=== PATIENT | male | born 1930 | race Caucasian/White ===

== ENCOUNTER 2016-11-06 14:44 | Inpatient (IN) | payer OTHER ==
--- NOTE | ~2016-11-06 | EKG ---
PATIENT: SHAHAB MEDEIROS UNIT #: [id number] Ventricular Rate: 78 BPM Atrial Rate: 78 BPM P-R Interval: 190 ms QRS Duration: 118 ms Q-T Interval: 392 ms QTC Calculation(Bezet): 446 ms P [place]: 42 degrees Calculated R [place]: 92 degrees Calculated T [place]: -39 degrees Diagnosis Line: Sinus rhythm with Fusion complexes Diagnosis Line: Rightward axis Diagnosis Line: Incomplete left bundle branch block Diagnosis Line: T wave abnormality, consider inferior ischemia Diagnosis Line: Abnormal ECG Diagnosis Line: When compared with ECG of 06-NOV-2016 13:33, Diagnosis Line: Premature ventricular complexes are no longer Diagnosis Line: Present Diagnosis Line: Incomplete left bundle branch block has replaced Diagnosis Line: Non-specific intra-ventricular conduction delay Diagnosis Line: Confirmed by NO PYLE MD ([id number]) on 11/10/2016 Diagnosis Line: 10:59:02 PM INTERPRETING MD: EDENILSON LALA
--- NOTE | ~2016-11-06 | ST ---
Unit #: [id number] #: [id number] Patient: SHAHAB MEDEIROS [id number] [address] [address] [id number] I MR#: [id number] NAME: SHAHAB MEDEIROS : 1930 SEX: M STUDY DATE/TIME: 11/07/2016 UNIT: [facility] ROOM: 572 STUDY DESCRIPTION: Stress Test Attending Physician: Smith Arce M.D. Primary Care Physician: Brandon Tejada M.D. CARDIOLOGY REPORT EXAM Lexiscan Cardiolite Stress Test REASON FOR EXAMINATION Chest pain. DESCRIPTION Baseline EKG was sinus rhythm with a rate of 64 beats/minute with a right bundle branch block. A total of 0.4 mg of Lexiscan was injected per protocol followed by Cardiolite. The patient's symptoms were nausea. His heart rate did drop to 38. The patient had to be laid back and he was given 250 mL of normal saline. Once we were able to obtain a blood pressure, his blood pressure was 95/68. The test was stopped due to protocol completion. There were no ST-T wave changes. The patient did have nausea with vasovagal resolved after fluids. No arrhythmias. Please correlate with Cardiolite imaging. Dictated by... Kimberly Arce A.P.R.N. for Solo Subramanian M.D. AM/jerry TD: 11/07/2016 12:31 JOB #: [id number] CARDIOLOGY REPORT Page 1 of 1 X Kimberly Arce APRN CARDIOLOGY REPORT
--- NOTE | ~2016-11-06 | CO ---
Unit #: [id number] #: [id number] Patient: SHAHAB MEDEIROS [id number] [place] [id number] [facility]. [place], [place] [address] [id number] I MR#: [id number] NAME: SHAHAB MEDEIROS ROOM: 572 Age: 85 Sex: M Admission Date: 11/06/2016 : 1930 Attending Physician: Smith Arce M.D. Primary Care Physician: Brandon Tejada M.D. Consultation Date: 11/07/2016 CONSULTATION REPORT REASON FOR CONSULTATION Chest pain and near syncope. REQUESTING PHYSICIAN Dr. Calzada HISTORY OF PRESENT ILLNESS The patient is an 85-year-old male with a history of coronary artery disease and valvular heart disease who had CABG x4 and mitral valve repair in January 2004. The patient states that this was performed following a myocardial infarction. The patient follows with Dr. Beau Betancur but has not seen him since Dr. Betancur left [facility]. The patient states that yesterday he had dinner and then around 2:00 went to use the restroom. He went to have a bowel movement. The patient states that he then felt diaphoretic and lightheaded. He denied problems with chest pain at the time. He then got up and felt as though he would nearly pass out. He then came into the emergency department for further evaluation. The patient also states that for the previous two to three days he has just not felt well. He has no real specific complaints. The patient also reports that since he has been in the hospital he has had some left sided chest discomfort he describes as a tightness. He says that this generally lasts a few seconds in duration. It is not pleuritic but can sometimes be exacerbated by lying on his left side. He has also experienced a few of these this morning. He has noticed some increase in dyspnea on exertion recently. He does, however, walk whenever the weather is good. He states that he sometimes walk to the park which is approximately a three mile walk and (1) walks around his neighborhood. He denies any problems with exertional chest pain and also denies problems with shortness of breath with this activity. The patient says that he did receive some nitroglycerin in the emergency department which helped with his chest discomfort. PAST CARDIAC TESTING HISTORY He had a left heart catheterization 07/04/[address] Beau Betancur for angina. At that time, it showed the left distal main had a 30% stenosis, the LAD had a proximal 100% stenosis, the left circumflex had an obtuse marginal one with a proximal 30% stenosis. The obtuse marginal two had a proximal 80% stenosis and the mid left circumflex had 60% stenosis. There was an obtuse marginal three that was small distally. The right coronary artery was dominant with a mid total occlusion. The patient had a BELLAMY to the LAD which was patent, saphenous vein graft to the obtuse marginal two, diagonal, and right PDA were all widely patent. The patient had a 2D echo Doppler on 06/27/2014 at [facility] which showed an Unit #: [id number] #: [id number] Patient: SHAHAB MEDEIROS ejection fraction of 40% to 45%, mild concentric LVH, mild to moderate TR with an RVSP of 61 and moderate MR. PAST MEDICAL HISTORY 1. History of coronary artery disease with CABG x4 in January 2004. 2. He has valvular heart disease with mitral valve repair in January 2004. 3. Hypertension. 4. Myasthenia gravis. 5. Hyperlipidemia. 6. Hypothyroidism. 7. History of TIA. 8. Chronic kidney insufficiency. 9. Prostatitis. 10. BPH. 11. History of colorectal cancer with partial colon resection in August 2004. 12. Diverticulosis. HOME MEDICATIONS 1. Folic acid 1 mg daily. 2. Toprol XL 50 mg daily. 3. Norvasc 5 mg daily. 4. Diclofenac 50 mg, one to two daily p.r.n. 5. Pyrostigmine 60 mg daily. 6. Cardura 2 mg daily. 7. Levoxyl 112 mcg daily. 8. Plavix 75 mg daily. 9. Aspirin 81 mg daily. ALLERGIES He has no known drug allergies. SOCIAL HISTORY He does not smoke. He has a history of smoking one pack daily but quit 35-40 years ago. He denies alcohol use or illicit drug use. He lives at home with his . He is retired from [employer] FAMILY HISTORY He denies any family history of premature coronary artery disease. REVIEW OF SYSTEMS GENERAL: He denies recent fevers, chills or flu-like symptoms. SKIN: Denies recent rashes or hives. HEENT: No headaches, vision loss, hearing loss, epistaxis or dysphagia. PULMONARY: No cough, hemoptysis or wheezing. He has noted some increase in shortness of breath recently. CARDIAC: Chest pain as discussed above. He denies palpitations, tachycardia, orthopnea or PND. GI: He did have some nausea with the above described lightheaded episode. He has diarrhea. He has had problems with diarrhea since his colon surgery. He denies any vomiting or melena. : Denies hematuria or dysuria. EXTREMITIES: He has occasional swelling in his right lower extremity. SPINE: No chronic pain. NEURO: Lightheadedness and dizziness as discussed above. No stroke-like symptoms. CURRENT LABS AND TESTS Unit #: [id number] #: [id number] Patient: SHAHAB MEDEIROS CARDIOVASCULAR: EKG shows normal sinus rhythm with incomplete left bundle branch block and occasional PVC. There is no significant change from the EKG on 07/04/2014. IMAGING: Chest x-ray shows no acute process. LABORATORY: TSH is 0.90, troponin less than 0.03 at 3:30 this morning and 0.03 at 2122 yesterday. CK is 189. MB is 2.1. BNP is 144. PT 10.7, INR 1.0. Sodium 138, potassium 3.8, chloride 109, CO2 22, BUN 14, creatinine 1.0, glucose 114. White blood cell 8.3, hemoglobin 11.5, hematocrit 35.3 and platelets 180. Magnesium is 2.1. PHYSICAL EXAMINATION VITAL SIGNS: Blood pressure is 121/66, heart rate 72 and regular, respirations 22 and regular, temperature 97.9, O2 sat 99% on 2 L of oxygen nasal cannula. Weight is 172 pounds. GENERAL: The patient is a well developed, well nourished elderly male in no acute distress. Alert and oriented x3. SKIN: No rashes or hives. HEENT: Head is normocephalic, atraumatic. There is no xanthelasma. Oral mucosa is pink and moist. NECK: No JVD or carotid bruits. SPINE: No scoliosis. CHEST: Clear to auscultation bilaterally without wheezes, rhonchi or accessory muscle use. CORONARY: Regular rate and rhythm with a 1/out of 6 systolic murmur. No gallop, rub or lift appreciated. ABDOMEN: Soft, nontender, nondistended. Positive bowel sounds x4. The abdominal aortic pulsation is not enlarged. EXTREMITIES: No clubbing, cyanosis or edema. NEUROLOGICAL: Alert and oriented x3. ASSESSMENT AND PLAN 1. Lightheadedness with near syncopal episode during bowel movement. This is likely vasovagal. 2. Chest pain, atypical. 3. Coronary artery disease with history of coronary artery bypass graft in January 2004. 4. Valvular heart disease with history of mitral valve repair in January 2004. 5. Ejection fraction 40% to 45% by 2D echo Doppler 06/2014. 6. Hypertension. 7. Dyslipidemia. 8. Myasthenia gravis. 9. Chronic kidney disease. 10. History of colorectal cancer with partial colon resection August 2014. Mr. Medeiros was also evaluated by Dr. Subramanian. The event he describes appears to be a vasovagal event. The patient was encouraged to keep his fluid status optimized. His chest pains are somewhat atypical. We will perform a stress Cardiolite for further evaluation of his above mentioned symptoms. Further recommendations will be followed based on the completion of his stress Cardiolite. If this shows no ischemia, he could be released home from a cardiac standpoint. Unit #: [id number] #: [id number] Patient: SHAHAB MEDEIROS Dictated by... Carina Arnold PJuliethAJuliethC. for Solo Subramanian M.D. CMG/jerry TD: 11/07/2016 10:14 JOB #: [id number] CONSULTATION REPORT Page 1 of 1 X X CONSULTATION REPORT
--- NOTE | ~2016-11-06 | HP ---
Unit #: [id number] #: [id number] Patient: SHAHAB MEDEIROS [id number] [id number] [facility]. [place], [place] [address] [id number] I MR#: [id number] NAME: SHAHAB MEDEIROS. ROOM: 572 Age: 85 Sex: M Admission Date: 11/06/2016 : 1930 Attending Physician: Smith Arce M.D. Primary Care Physician: Brandon Tejada M.D. HISTORY AND PHYSICAL CHIEF COMPLAINT Chest pain. HISTORY OF PRESENT ILLNESS Patient is a pleasant, 85-year-old, male who presented with chest pain. Patient, after having dinner, he went to use the bathroom to stool and then he developed left-sided chest pain. Did not describe the chest pain as radiating. He sort of mentioned that the chest pain was somewhat similar to way back when he had his heart attack and had to have a bypass. He used to doctor with Dr. Betancur, but has not seen his [employer] in over a year since Dr. Betancur moved away. Other than that, denies any diaphoresis. Denies any jaw pain. Denies any radiation of the pain. He states that he had a stress test about two years ago while he was seeing Dr. Betancur. Other than that, denies any melena, hematochezia, hemoptysis, or hematemesis. Denies any headaches, nausea, or vomiting. Denies any history to suggest syncope. REVIEW OF SYSTEMS Complete 10-point review of systems has been done and pertinent positives noted. PAST MEDICAL HISTORY Hypertension, hypothyroidism, valvular heart disease, myasthenia gravis, hyperlipidemia, and hypothyroidism. He has benign prostatic hypertrophy and has had a history of a cardiac stent about 30 years ago. MEDICATIONS Home medications include: 1. Folic acid 1 mg p.o. every day. 2. Toprol XL 50 mg p.o. every day. 3. Amlodipine 5 mg p.o. every day. 4. Diclofenac sodium 50 mg p.o. every day. 5. Pyridostigmine 60 mg p.o. every day. 6. Cardura 2 mg p.o. every day. 7. Levoxyl 112 mcg p.o. every day. 8. Plavix 75 mg p.o. every day. 9. Baby aspirin 81 mg p.o. every day. ALLERGIES No known drug allergies. SOCIAL HISTORY Lifelong nonsmoker. and lives with his who has dementia. No alcohol or illicit drug use. Unit #: [id number] #: [id number] Patient: SHAHAB MEDEIROS FAMILY HISTORY Noncontributory. PAST SURGICAL HISTORY He had quadruple bypass, appendectomy, sinus surgery, and colon resection. He has had valve replacement in the past, but not exactly sure which valve was replaced. PHYSICAL EXAMINATION GENERAL APPEARANCE: He was comfortable and not in distress. VITAL SIGNS: Blood pressure 131/74, pulse 78, respiratory rate 20, and temperature 98.3. HEENT: Pupils were equal and reactive to light and accommodation. NECK: Supple without thyromegaly. CARDIOVASCULAR: First and second hearts only. CHEST: Mostly clear. No transmitted sounds. ABDOMEN: Full. Moved with respirations. Soft and nontender. RECTAL: Exam was deferred. EXTREMITIES: Mild 1+ bilateral lower extremity edema. SKIN: Warm and dry with no rashes. LYMPHATIC: No enlarged peripheral lymphadenopathy that I could appreciate. DIAGNOSTIC STUDIES CARDIOVASCULAR: He had an EKG, which showed sinus rhythm with occasional PVCs, but no significant interventricular conduction delay. LABORATORY: He had chemistries: Glucose 101, BUN and creatinine 15 and 1.3; sodium and potassium 139 and 3.7; and chloride 106. BNP was 144. Patient had a CBC: WBC 9 and hemoglobin and hematocrit 12.3 and 37.8 with platelet count of 191. IMAGING: He had a chest x-ray, which showed postop changes of bypass and valve replacement. No acute process seen in the chest. ASSESSMENT AND PLAN 1. Chest pain. Admit him to tele. Get two sets of cardiac enzymes. Consult Dr. 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 Get a CBC, BMP, mag, phos, fasting lipid profile, and TSH in the morning. Put 1/2 inch of nitro paste to anterior chest wall q.6 hourly p.r.n. chest pain. Put him on oxygen just as supplementation. 2. Coronary artery disease, status post coronary artery bypass graft. 3. Myasthenia gravis. Continue medication. 4. Hyperlipidemia and hypothyroidism, continue medication. 5. For DVT prophylaxis, put him on Lovenox as well as SCDs. 6. For GI prophylaxis, put him on Protonix 40 mg p.o. every day. Dictated by Kaz Adair/natalie TD: 11/07/2016 06:31 JOB #: [id number] Unit #: [id number] #: [id number] Patient: SHAHAB MEDEIROS HISTORY AND PHYSICAL Page 1 of 1 X Nani Calzada MD HISTORY AND PHYSICAL
--- NOTE | ~2016-11-06 | HM ---
Unit #: [id number] #: [id number] Patient: SHAHAB MEDEIROS [id number] [address] [address] [id number] I MR#: [id number] NAME: SHAHAB MEDEIROS. : 1930 SEX: M STUDY DATE/TIME: UNIT: [facility] ROOM: 572 STUDY DESCRIPTION: Holter Monitor Attending Physician: Yifan Young M.D. Primary Care Physician: Brandon Tejada M.D. CARDIOLOGY REPORT EXAM 24 Hour Holter Monitor DATE APPLIED 11/07/2016 DATE SCANNED 11/09/[address] Solo Subramanian READ BY Bernarda Murphy M.D. REASON FOR STUDY Chest pain FINDINGS Underlying rhythm is normal sinus rhythm with an average heart rate of 69 beats, minimum heart rate of 5249 beats per minute, and a maximum heart rate of 132 beats per minute. The minimum heart rate of 52 beats per minute is noted at 5:04 p.m. The maximum heart rate of 132 beats per minute is noted at 8:06 a.m. The patient had a 1.65 second pause noted at 5:53 p.m. The patient had 1125 single multifocal premature ventricular complexes, 9 ventricular couplets and 3 ventricular bigeminy noted. The patient had 11 beat run of ventricular tachycardia at a heart rate of 107 beats per minute noted at 10:58 p.m. The patient had 340 single premature atrial complexes and 7 atrial couplets noted. Patient had several 4 to 21 beat run of paroxysmal supraventricular tachycardia with a heart rate ranging from 105 to 120 beats per minute. The patient did not record any symptoms. CONCLUSION 1. Underlying rhythm is normal sinus rhythm with an average heart rate of 67 beats per minute, minimum heart rate of 52 beats per minute with a maximum heart of 132 beats per minute. 2. No significant atrial or ventricular arrhythmias noted. 3. No significant pauses noted. 4. Frequent single multifocal premature ventricular complexes noted. 5. The patient had 11 beat run of ventricular tachycardia at a heart rate of 107 beats per minute. 6. Occasional single premature atrial complexes noted. Unit #: [id number] #: [id number] Patient: SHAHAB MEDEIROS 7. The patient had several 4 to 21 beat run of paroxysmal supraventricular tachycardia with a heart rate ranging from 105 to 120 beats per minute. 8. The patient did not record any symptoms. Dictated by... Kaz Tran TD: 11/11/2016 05:40 JOB #: [id number] CARDIOLOGY REPORT Page 1 of 1 X Bernarda Murphy MD <ELECTRONICALLY SIGNED> 02/21/17 1429 HOLTER MONITOR REPORT
--- NOTE | ~2016-11-06 | CR72 ---
[facility] A Service of [facility] RADIOLOGY TEXT RESULTS PATIENT: SHAHAB MEDEIROS LOCATION: [place] [address] : [birth year] UNIT #: [id number] AGE: [address]: Smith Arce MD SEX: M ORDER DR: [id number] [facility] [address] [place], [place] [address] [id number] MR#: [id number] Acc #: [id number] NAME: SHAHAB MEDEIROS. : 1930 SEX: M STUDY DATE/TIME: 11/06/2016 15:01 UNIT: [facility] ROOM: STUDY DESCRIPTION: CR Chest Single View Portable Attending Physician: Cassandra Crespo M.D. Ordering Physician: Cassandra Crespo M.D. Primary Care Physician: Brandon Tejada M.D. MEDICAL IMAGING REPORT This report is preliminary unless electronic signature is present EXAM Portable chest, 11/06. COMPARISON 08/09/2014 HISTORY Chest pain, tightness, difficulty breathing beginning today. FINDINGS An AP portable view was obtained showing postop changes of prior bypass surgery and valve replacement. Heart size is stable and within normal limits. Lungs show some linear scarring in the midportion of the right lung along the minor fissure. No acute infiltrates are seen. There is some basilar fibrosis. CONCLUSION Postop changes of bypass and valve replacement. No acute process seen in the chest. Dictated by... Julio Edwards M.D. THIS IS AN ELECTRONICALLY VERIFIED REPORT Julio Edwards M.D. at 11/07/2016 4:26 PM GENESIS/rolf TD: 11/06/2016 16:57 JOB #: [id number] MEDICAL IMAGING REPORT [facility] A Service [facility] RADIOLOGY TEXT RESULTS PATIENT: SHAHAB MEDEIROS LOCATION: [facility] 572- : [birth year] UNIT #: [id number] AGE: [address]: Smith Arce MD SEX: M ORDER DR: Page 1 of 1 COPY
--- NOTE | ~2016-11-06 | ST ---
Unit #: [id number] #: [id number] Patient: SHAHAB MEDEIROS [id number] [address] [address] [id number] I MR#: [id number] NAME: SHAHAB MEDEIROS : 1930 SEX: M STUDY DATE/TIME: 11/07/2016 UNIT: [facility] ROOM: 572 STUDY DESCRIPTION: Attending Physician: Smith Arce M.D. Primary Care Physician: Brandon Tejada M.D. CARDIOLOGY REPORT EXAM EKG portion of the Lexiscan stress test. INDICATIONS Chest pain. FINDINGS Resting blood pressure was 140/81. Post infusion blood pressure was 116/67. Resting heart rate was 64 beats per minute. Post infusion heart rate was 80 beats per minute. Resting EKG showed normal sinus rhythm with poor R-wave progression but no significant ST segment changes to suggest ischemia. At 3:50 minute of the infusion, the patient developed sinus bradycardia at a heart rate of 47 beats per minute with first degree AV block and ST elevation in V1 through V3. These changes completely normalized toward the end of recovery. IMPRESSION Positive EKG portion of the Lexiscan stress test with first degree AV block and ST elevation in V1 through V3. Nuclear portion of the exercise stress test will be dictated separately. Dictated by... Kevyn Zimmer M.D. JERMAINE/jak TD: 11/08/2016 08:25 JOB #: [id number] CARDIOLOGY REPORT Page 1 of 1 X CARDIOLOGY REPORT
--- NOTE | ~2016-11-06 | EKG ---
PATIENT: SHAHAB MEDEIROS UNIT #: [id number] Ventricular Rate: 74 BPM Atrial Rate: 74 BPM P-R Interval: 194 ms QRS Duration: 118 ms Q-T Interval: 420 ms QTC Calculation(Bezet): 466 ms P [place]: 59 degrees Calculated R [place]: 26 degrees Calculated T [place]: 41 degrees Diagnosis Line: Sinus rhythm with occasional Premature ventricular Diagnosis Line: complexes and Fusion complexes Diagnosis Line: Non-specific intra-ventricular conduction block Diagnosis Line: Abnormal ECG Diagnosis Line: When compared with ECG of 10-AUG-2014 06:43, Diagnosis Line: Fusion complexes are now Present Diagnosis Line: Premature ventricular complexes are now Present Diagnosis Line: Non-specific intra-ventricular conduction delay Diagnosis Line: has replaced Incomplete left bundle branch block Diagnosis Line: Confirmed by NO PYLE MD ([id number]) on 11/07/2016 Diagnosis Line: 7:13:54 PM INTERPRETING MD: EDENILSON LALA
--- NOTE | ~2016-11-06 | TH ---
Unit #: [id number] #: [id number] Patient: SHAHAB MEDEIROS [id number] [address] [address] [id number] I MR#: [id number] NAME: SHAHAB MEDEIROS : 1930 SEX: M STUDY DATE/TIME: 11/07/2016 UNIT: [facility] ROOM: 572 STUDY DESCRIPTION: Cardioilte imaging. Attending Physician: Smith Arce M.D. Primary Care Physician: Brandon Tejada M.D. CARDIOLOGY REPORT EXAM Cardiolite imaging. INDICATION FOR STUDY Chest pain. PROCEDURE Resting dose was 12 mCi, stress dose was 35 mCi. End-diastolic volume was 133 ml and systolic volume was 62 ml, calculated ejection fraction 53%. Raw images showed on significantly abnormal extracardiac uptake. Perfusion images showed minimal area of small reversible defect in the distal apical wall with fixed defect in the inferior wall that appears to be diaphragmatic attenuation considering the normal wall motion. Gated images showed no significant wall motion abnormality with preserved ejection fraction that is calculated at 53%. IMPRESSION 1. Nuclear portion of the Lexiscan stress test showed minimal area of reversibility in the distal apical wall. 2. Preserved left ventricular ejection fraction with no significant wall motion abnormality. 3. Please refer to the EKG portion of this Lexiscan. The EKG portion is abnormal. Dictated by.Kaz Borja TD: 11/08/2016 13:59 JOB #: [id number] CARDIOLOGY REPORT Page 1 of 1 X CARDIOLOGY REPORT
[2016-11-06 14:12] LABS: POC - CKMB 1.4 ng/mL (0.0-7.9); POC - TROPONIN <0.05 ng/mL (<=0.05)
[~2016-11-06 14:44] MED LIST: ACETAMINOPHEN PO; AGGRENOX PO; ALTACE PO; ALTACE10 M2 PO; AMBIEN PO; AMBIEN10 MG PO; AMLODIPINE BESYL5 MG PO; ASPIRIN81 M2 PO; ASPIRINEC PO; BISACODYL EC5 M1 PO; CARAFATE1 GM PO; CLOPIDOGREL75 MG PO; COREG6.25 MG PO; CYANOCOBAL1000 MCG/1 SUBQ; DOXAZOSIN MESYLA2 MG PO; FLOMAX0.4 MG PO; FLONASE16 GM; FOLIC ACID1 MG PO; FUROSEMIDE40 MG PO; HYDROCODONE-CHLO5 ML PO; K-DUR20 ME1 DOB; KCL PO; LEVAQUIN250 MG PO; LEVOXYL PO; LIPITOR20 MG PO; LIVALO2 MG PO; LOPRESSOR PO; MAXAPAP325 MG PO; MESTINON180 MG PO; MESTINON60 MG/5 ML PO; NABUMETONE500 M1 PO; NITROSTAT0.4 MG SL; NORVASC PO; NORVASC10 MG PO; NORVASC2.5 MG PO; OXYCODONE15 M1 PO; PATIENT'S PHARMACY; PYRIDOSTIGMINE PO; PYRIDOSTIGMINE60 M1 PO; QUETIAPINE FUMA25 MG PO; SYNTHROID0.1 MG PO; TAMIFLU75 M1 PO; TOPROL XL 50 MG50 MG PO; TOPROL XL PO; UNITHROID100 MCG PO; VYTORIN 10/20 T1 TAB PO; [UNRECOGNIZED DRUG - CODE] SQ; [UNRECOGNIZED DRUG - OTHER] PO
[2016-11-06 14:59] LABS: BASOPHIL# 0.1 X10e3 (0-0.3); BASOPHIL% 0.7 % (0-2.5); EOSINOPHIL# 0.6 X10e3 (0-0.7); EOSINOPHIL% 6.9 % (0.0-7.0); HEMATOCRIT 37.8 % (38.0-50.0); HEMOGLOBIN 12.3 gm/dL (13.0-16.0); LYMPHOCYTE# 2.4 X10e3 (1.0-3.5); LYMPHOCYTE% 26.4 % (17.0-45.0); MEAN CELL VOLUME 87.4 FL (83-96); MEAN CORPUSCULAR HEMOGLOBIN 28.3 PG (28-34); MEAN CORPUSCULAR HGB CONC 32.4 g/dL (30-36); MEAN PLATELET VOLUME 9.1 FL (6.5-11.5); MONOCYTE# 0.8 X10e3 (0-1.0); MONOCYTE% 9.1 % (3.0-12.0); NEUTROPHIL# 5.1 X10e3 (1.5-7.1); NEUTROPHIL% 56.9 % (40-75); PLATELET COUNT 191 X10e3 (140-420); RED BLOOD COUNT 4.33 X10e (3.90-5.60)
[2016-11-06 15:01] LABS: DIFF IND NO
[2016-11-06 15:08] LABS: PARTIAL THROMBOPLASTIN TIME 23.6 SECONDS (23.5-31.3); PROTHROMBIN TIME (PATIENT) 10.7 SECONDS (9.6-11.5)
[2016-11-06 15:22] LABS: ALBUMIN SERUM 4.3 g/dL (3.5-5.0); ALKALINE PHOSPHATASE 59 U/L (32-92); ALT (SGPT) 19 U/L (10-40); AST (SGOT) 22 U/L (10-42); BILIRUBIN,TOTAL 0.7 mg/dL (0.2-2.0); BLOOD UREA NITROGEN 15 mg/dL (9-23); BUN/CREATININE RATIO 11.53; CALCIUM SERUM 9.1 mg/dL (8.4-10.2); CARBON DIOXIDE 22 mmol/L (22-31); CHLORIDE 106 mmol/L (100-111); CREATININE SERUM 1.3 mg/dL (0.6-1.4); GLOM FILT RATE Estimated 49.1 mL/min (>60); GLUCOSE FASTING 101 mg/dL (70-110); POTASSIUM 3.7 mmol/L (3.5-5.1); PROTEIN TOTAL SERUM 7.3 g/dL (6.0-8.3); SODIUM 139 mmol/L (135-145)
[2016-11-06 15:24] LABS: BILIRUBIN, DIRECT <0.1 mg/dL (0.0-0.2); BILIRUBIN,INDIRECT 0.6 mg/dL (0.0-0.9)
[2016-11-06 15:58] LABS: POC - CKMB 1.4 ng/mL (0.0-7.9); POC - TROPONIN <0.05 ng/mL (<=0.05)
[2016-11-06] MEDS ORDERED: FOLIC ACID1 MG PO (18:43)
[2016-11-06] MEDS ORDERED: TOPROL XL50 MG PO (18:43)
[2016-11-06] MEDS ORDERED: AMLODIPINE BESYL5 MG PO (18:43)
[2016-11-06] MEDS ORDERED: VOLTAREN50 MG PO (18:44)
[2016-11-06] MEDS ORDERED: PYRIDOSTIGMINE60 M2 PO (18:45)
[2016-11-06] MEDS ORDERED: CARDURA2 MG PO (18:45)
[2016-11-06] MEDS ORDERED: CLOPIDOGREL BIS75 MG PO (18:46)
[2016-11-06] MEDS ORDERED: BAYER CHEWABLE81 MG PO (18:46)
[2016-11-06] MEDS ORDERED: LEVOXYL112 MC1 PO (18:46)
[2016-11-06 22:19] LABS: %MB 1.2 % (0.0-4.0); MB 2.3 ng/ml
[2016-11-07 03:55] LABS: HEMATOCRIT 35.3 % (38.0-50.0); HEMOGLOBIN 11.5 gm/dL (13.0-16.0); MEAN CORPUSCULAR HEMOGLOBIN 28.4 PG (28-34); MEAN CORPUSCULAR HGB CONC 32.6 g/dL (30-36); RED BLOOD COUNT 4.06 X10e (3.90-5.60); RED CELL DISTRIBUTION WIDTH 16.1 % (11.0-15.5); WHITE BLOOD COUNT 8.3 X10e3 (4.0-10.5)
[2016-11-07 04:24] LABS: ALBUMIN SERUM 3.7 g/dL (3.5-5.0); BILIRUBIN, DIRECT 0.1 mg/dL (0.0-0.2); BILIRUBIN,TOTAL 0.6 mg/dL (0.2-2.0); CALCIUM SERUM 8.4 mg/dL (8.4-10.2); GLOM FILT RATE Estimated 67.4 mL/min (>60); MAGNESIUM 2.1 mg/dL (1.6-3.0); PHOSPHOROUS 2.6 mg/dL (2.5-4.6); POTASSIUM 3.8 mmol/L (3.5-5.1); PROTEIN TOTAL SERUM 6.4 g/dL (6.0-8.3)
[2016-11-07 04:47] LABS: %MB 1.1 % (0.0-4.0); MB 2.1 ng/ml
[2016-11-07 11:59] LABS: %MB 1.1 % (0.0-4.0); MB 2.1 ng/ml
[2016-11-09 07:07] LABS: CALCIUM SERUM 8.9 mg/dL (8.4-10.2); GLOM FILT RATE Estimated 67.4 mL/min (>60); MAGNESIUM 2.1 mg/dL (1.6-3.0); POTASSIUM 3.9 mmol/L (3.5-5.1)
[2016-11-10 05:14] LABS: BASOPHIL% 0.5 % (0-2.5); EOSINOPHIL# 0.7 X10e3 (0-0.7); EOSINOPHIL% 8.7 % (0.0-7.0); HEMATOCRIT 35.4 % (38.0-50.0); HEMOGLOBIN 11.6 gm/dL (13.0-16.0); LYMPHOCYTE# 1.6 X10e3 (1.0-3.5); LYMPHOCYTE% 19.9 % (17.0-45.0); MEAN CELL VOLUME 86.2 FL (83-96); MEAN CORPUSCULAR HEMOGLOBIN 28.2 PG (28-34); MEAN CORPUSCULAR HGB CONC 32.8 g/dL (30-36); MEAN PLATELET VOLUME 8.8 FL (6.5-11.5); MONOCYTE# 0.7 X10e3 (0-1.0); MONOCYTE% 8.8 % (3.0-12.0); NEUTROPHIL% 62.1 % (40-75); PLATELET COUNT 182 X10e3 (140-420); RED CELL DISTRIBUTION WIDTH 15.9 % (11.0-15.5)
[2016-11-10 05:17] LABS: DIFF IND NO
[2016-11-10 05:36] LABS: INR 1.1; PROTHROMBIN TIME (PATIENT) 11.3 SECONDS (9.6-11.5)
[2016-11-10 06:13] LABS: CALCIUM SERUM 9.1 mg/dL (8.4-10.2); GLOM FILT RATE Estimated 67.4 mL/min (>60); MAGNESIUM 2.1 mg/dL (1.6-3.0); POTASSIUM 3.9 mmol/L (3.5-5.1)
[2016-11-10] MEDS ORDERED: NITROSTAT0.4 MG SL (18:02)
== END 2016-11-10 18:33 | disposition home or self-care (01) | DRG 287 ==
LOC: CED 14:44 → CEDOF 19:21 → C5C 22:27
PROVIDERS: Emergency Medicine; Family Medicine; Internal Medicine Cardiovascular Disease; Nurse Practitioner
PROC: 4A023N7 Measurement of Cardiac Sampling and Pressure, Left Heart, Percutaneous Approach (ICD-10-PCS; principal; 2016-11-10)
PROC: B211YZZ Fluoroscopy of Multiple Coronary Arteries using Other Contrast (ICD-10-PCS; 2016-11-10)
PROC: B215YZZ Fluoroscopy of Left Heart using Other Contrast (ICD-10-PCS; 2016-11-10)
DX: R07.89 Other chest pain (principal); G70.00 Myasthenia gravis without (acute) exacerbation; I34.0 Nonrheumatic mitral (valve) insufficiency; Z95.1 Presence of aortocoronary bypass graft; I25.10 Atherosclerotic heart disease of native coronary artery without angina pectoris; E03.9 Hypothyroidism, unspecified; E78.5 Hyperlipidemia, unspecified; N40.0 Benign prostatic hyperplasia without lower urinary tract symptoms; Z86.73 Personal history of transient ischemic attack (TIA), and cerebral infarction without residual deficits; Z87.891 Personal history of nicotine dependence; I12.9 Hypertensive chronic kidney disease with stage 1 through stage 4 chronic kidney disease, or unspecified chronic kidney disease; N18.9 Chronic kidney disease, unspecified; Z85.038 Personal history of other malignant neoplasm of large intestine; R55 Syncope and collapse; I25.2 Old myocardial infarction
CPT/HCPCS: 36415; 71010; 78452; 80048; 80053; 80076; 82248; 82550; 82553; 83735; 83880; 84100; 84443; 84484; 85025; 85027; 85610; 85730; 93005; 93017; 93225; 93226; 94760; 99285; A9500; C1769; C1887; C1894; J1644; J1650; J2250; J2785; J3010

== ENCOUNTER 2017-01-12 11:04 | Emergency (ER) | payer OTHER ==
[~2017-01-12 11:04] MED LIST changes: +BAYER CHEWABLE81 MG PO; +CARDURA2 MG PO; +CLOPIDOGREL BIS75 MG PO; +LEVOXYL112 MC1 PO; +PYRIDOSTIGMINE60 M2 PO; +TOPROL XL50 MG PO; +VOLTAREN50 MG PO
== END 2017-01-12 12:38 | disposition home or self-care (01) ==
LOC: SED 11:04
DX: H61.21 Impacted cerumen, right ear (principal); I10 Essential (primary) hypertension
CPT/HCPCS: 69210; 99283